=== PATIENT | male | born 1960 | race Caucasian/White ===

== ENCOUNTER 2018-07-10 05:40 | Day surgery (SDC) | payer OTHER ==
[~2018-07-10] VITALS: Ht 172.7 cm; Wt 81.7 kg
[~2018-07-10 05:40] MED LIST: CENTRUM SILVER1 EAC3 PO; KEFLEX500 MG PO; NORCO 5-325 TA1 EACH PO; OMEGA 3 1,0001 EACH PO; SEPTRA DS TABL1 EACH PO; VITAMIN D31000 UNI1 PO
--- NOTE | 2018-07-10 08:29 | NUR ---
07/10/18 0829 Janette Judd 0824- PT ARRIVES TO PACU AWAKE OFF AND ON, DROWSY. PT ANSWERS QUESTIONS APPROPRIATELY AND FOLLOW COMMANDS. PT ON 8 L O2 VIA MASK. PT DENIES N/V AND RATES PAIN 1/10. SCD'S ON AND PLUGGED IN.
--- NOTE | 2018-07-10 10:51 | NUR ---
LE [address] GARCIA CALLED FOR SCRIPT. STATES HE WILL GET IT TO [facility] FOR PT.
--- NOTE | 2018-07-10 12:36 | NUR ---
PT SITTING ON SIDE OF BED, ALERT AND ORIENTED. PT RATHER QUIET BUT SEEMS PLEASED I STOPPED. HAD PLEASANT VISIT, INTERRUPTED BY STAFF IN PREP FOR SURGERY. WILL FOLLOW NEEDED
--- NOTE | 2018-07-14 08:01 | OR ---
[facility] [address], [place] [address] Signed DATE OF OPERATION: 07/10/2018 SURGEON: Malissa Garcia MD PREOPERATIVE DIAGNOSIS: Internal and external hemorrhoid at 1 o'clock position. POSTOPERATIVE DIAGNOSES: 1. Internal and external hemorrhoid at 1 o'clock position. 2. Internal hemorrhoid at 5 o'clock position. PROCEDURES: Internal and external hemorrhoidectomy at 1 o'clock position. ESTIMATED BLOOD LOSS: None. INDICATIONS: Davonte is a 58-year-old gentleman, whom we have known for a number years. We know that he has some internal hemorrhoids from previous colonoscopy. However, he developed a rather painful lump at the 1 o'clock position around his anus. He said that he was bleeding every day and with every bowel movement. He had been to his primary care provider and was trying Proctofoam without much success. He finally was referred to my office for consideration of hemorrhoidectomy. In the office and the ED, he does have the internal and external hemorrhoid at the 1 o'clock position. He has excellent sphincter tone. He also had little bit internal hemorrhoid at the 5 and 7 o'clock positions. No evidence of any fissures. In the office, I gave Luis booklet on hemorrhoids. We looked at that together in detail. He has already been through medical therapy and wanted to proceed with surgical therapy. For this single hemorrhoid column, I explained to Luis simple hemorrhoidectomy would be sufficient. We looked at those pictures together. He understands, we will suture the internal component, but leave the external component open for drainage. He note he understands expected intraoperative and postoperative course. He also understands there is risk of surgery including, but not limited to bleeding, infection, scarring, change in contour of the skin, anal stenosis, and recurrent hemorrhoids at the same or other locations. He has expressed understanding and would like to proceed. DESCRIPTION OF PROCEDURE: Davonte was taken into the operating room and placed in the prone jackknife position under general endotracheal tube anesthesia. Appropriate padding and monitoring were placed. Electronically Signed By: MALISSA GARCIA MD 07/14/18 0801 PATIENT NAME: DAVONTE PRICE OPERATIVE REPORT DATE OF : 56 REPORT #: [id number] PHYSICIAN: MALISSA GARCIA MD PCP: ADELAIDE ARTEAGA MD REPORT IS CONFIDENTIAL AND NOT TO BE RELEASED WITHOUT AUTHORIZATION [facility] [address] [place] [id number] Signed He was given preoperative antibiotics along with subcutaneous heparin. SCDs were utilized. He was then prepped and draped in the usual sterile fashion. After this, we examined the full circumference of the anal canal with the help of the half-freitas retractor. Again, we can easily see the irritated internal and external component at 1 o'clock position. He had a small internal hemorrhoid at the 5 o'clock position and even small one at the 7 o'clock position. No inflammatory changes. No evidence of any fissures or fistula tracts. After this, we placed our 2-0 chromic at the apex of the internal component. Internal and external component were then excised with the help of the cautery. Direct visualization was undertaken of the sphincter muscles throughout the case. After this, the internal component was closed with a running locked 2-0 chromic suture. The external component was left open for drainage. Local anesthetic was then copiously injected in and around the anus. Dry gauze, dry ABD, and underwear were then placed. Dre was rotated into the supine position on his hospital bed, weaned from his anesthesia, extubated in the OR, and taken to recovery room in stable condition. Malissa Garcia MD ALB/MODL /[id number] cc: MD Malissa Condon MD Copies: ADELAIDE ARTEAGA MD, ANDREW L MD ~ Electronically Signed By: MALISSA GARCIA MD 07/14/18 0801 PATIENT NAME: DAVONTE PRICE OPERATIVE REPORT DATE OF : 56 REPORT #: [id number] PHYSICIAN: MALISSA GARCIA MD PCP: ADELAIDE ARTEAGA MD REPORT IS CONFIDENTIAL AND NOT TO BE RELEASED WITHOUT AUTHORIZATION
== END 2018-07-10 10:30 | disposition home or self-care (01) ==
LOC: DS 05:40
PROVIDERS: Colon & Rectal Surgery
PROC: 06BY0ZC Excision of Hemorrhoidal Plexus, Open Approach (ICD-10-PCS; principal; 2018-07-10 06:45)
DX: K64.8 Other hemorrhoids (principal); K64.4 Residual hemorrhoidal skin tags; I25.10 Atherosclerotic heart disease of native coronary artery without angina pectoris; J45.909 Unspecified asthma, uncomplicated; I10 Essential (primary) hypertension; I25.2 Old myocardial infarction; R94.31 Abnormal electrocardiogram [ECG] [EKG]; Z88.1 Allergy status to other antibiotic agents; Z79.899 Other long term (current) drug therapy
CPT/HCPCS: 00902; J0330; J0694; J1100; J1644; J1885; J2250; J2405; J2704; J2765; J3010; J7120

== ENCOUNTER 2018-11-07 14:46 | Emergency (ER) | payer OTHER ==
[~2018-11-07] VITALS: Ht 170.2 cm; Wt 97.1 kg
[2018-11-07] MEDS ORDERED: BRILINTA60 MG PO (15:04)
[2018-11-07] MEDS ORDERED: CARVEDILOL6.25 MG PO (15:05)
[2018-11-07] MEDS ORDERED: METHYLPREDNISOLO4 M1 PO (16:52)
[2018-11-07] MEDS ORDERED: CYCLOBENZAPRINE10 MG PO (16:52)
== END 2018-11-07 17:05 | disposition home or self-care (01) ==
LOC: ED 14:46
DX: S64.01XA Injury of ulnar nerve at wrist and hand level of right arm, initial encounter (principal); S64.11XA Injury of median nerve at wrist and hand level of right arm, initial encounter; S44.91XA Injury of unspecified nerve at shoulder and upper arm level, right arm, initial encounter; G58.9 Mononeuropathy, unspecified; X58.XXXA Exposure to other specified factors, initial encounter; I25.2 Old myocardial infarction; Z88.1 Allergy status to other antibiotic agents; Z79.899 Other long term (current) drug therapy
CPT/HCPCS: 70450; 80053; 84484; 85025; 99285-25